=== PATIENT | male | born 1970 | race Caucasian/White ===

== ENCOUNTER 2017-11-22 10:20 | Emergency (ER) | payer BC ==
[2017-11-22] MEDS ORDERED: EMS NS 0.9%(*) 1000 ML BAG 1,000 ML IV ONE (10:30)
--- NOTE | 2017-11-22 10:48 | ER Report ---
History and Physical Time Seen By MD: 10:30 Hx. of Stated Complaint: Patient found naked and combative in parking lot at truck stop. 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 He is originally from [place]. He was brought in by both police and EMS after he was found altered, diaphoretic, and running around naked in a parking lot of the truck stop. He was handcuffed by a bystander. He was given both Ativan and Valium by EMS due to his combative behavior. Upon arrival to the ED he is sleeping and still diaphoretic. Shortly after arrival he did wake. Upon awakening, he was extremely pleasant, confused, and remorseful about the turn of events. He states the last thing he remembers is sitting outside his truck in the sunshine to read a book, and thinks he probably fell asleep. He denies taking any medications or alcohol or illicit drug use. He reports no medical problems and states he does not take any medications daily. Remainder of the 14 system rev: Yes Reviewed Nurses Notes: Yes Old Medical Records Reviewed: Yes Hx Smoking: Yes Exposure to Second Hand Smoke?: Yes Hx Substance Use Disorder: No Hx Alcohol Use: No Constitutional Vital Sign - Last 24 Hours 11/22/17 11/22/17 11/22/17 11/22/17 10:21 10:30 10:36 10:45 Temp 101.1 Pulse 137 132 136 Resp 24 32 B/P (MAP) 175/119 169/130 (143) Pulse Ox 88 90 93 O2 Delivery Room Air 11/22/17 11/22/17 11:00 11:15 Pulse 120 125 Resp 23 10 B/P (MAP) 157/102 (120) Pulse Ox 90 90 Physical Exam General Appearance: The patient is alert, confused, and diaphoretic but has no immediate need for airway protection and no signs of toxicity. Eyes: Pupils equal and round no pallor or injection. ENT, Mouth: Mucous membranes are dry Respiratory: There are no retractions, lungs are clear to auscultation. Cardiovascular: tachycardic but regular Gastrointestinal: Abdomen is soft and non tender, no masses, bowel sounds normal. Neurological: Awake and alert but confused and amnestic to events, no focal neuro defiicts Skin: Diaphoretic, multiple abrasions to extremities. Large healing wound in the center of back Musculoskeletal: Neck is supple non tender. Extremities are nontender, nonswollen and have full range of motion. DIFFERENTIAL DIAGNOSIS: After history and physical exam differential diagnosis was considered for toxidrome, infection, closed injury, thyroid storm Medical Decision Making Data Points Result Diagram: 11/22/17 1013 11/22/17 1013 Laboratory Hematology Test 11/22/17 10:13 11/22/17 11:09 11/22/17 11:56 Red Blood Count 4.66 M/uL (4.00-5.60) Mean Corpuscular Volume 85.9 fL (80.0-96.0) Mean Corpuscular Hemoglobin 28.9 pg (26.0-33.0) Mean Corpuscular Hemoglobin Concent 33.6 g/dL (32.0-36.0) Red Cell Distribution Width 16.0 % (11.5-14.5) Mean Platelet Volume 9.0 fL (7.2-11.1) Neutrophils (%) (Auto) 72.5 % (39.4-72.5) Lymphocytes (%) (Auto) 20.7 % (17.6-49.6) Monocytes (%) (Auto) 4.8 % (4.1-12.4) Eosinophils (%) (Auto) 0.6 % (0.4-6.7) Basophils (%) (Auto) 1.4 % (0.3-1.4) Nucleated RBC Relative Count (auto) 0.0 /100WBC Neutrophils # (Auto) 8.4 K/uL (2.0-7.4) Lymphocytes # (Auto) 2.4 K/uL (1.3-3.6) Monocytes # (Auto) 0.6 K/uL (0.3-1.0) Eosinophils # (Auto) 0.1 K/uL (0.0-0.5) Basophils # (Auto) 0.2 K/uL (0.0-0.1) Nucleated RBC Absolute Count (auto) 0.00 K/uL Sodium Level 139 mmol/L (137-145) Potassium Level 3.2 mmol/L (3.5-5.0) Chloride Level 119 mmol/L (98-107) Carbon Dioxide Level 16 mmol/L (22-30) Blood Urea Nitrogen 10 mg/dl (9-21) Creatinine 1.10 mg/dl (0.66-1.25) Glomerular Filtration Rate Calc > 60.0 Random Glucose 191 mg/dl (75-110) Calcium Level 9.4 mg/dl (8.4-10.2) Total Bilirubin 0.3 mg/dl (0.2-1.3) Aspartate Amino Transf (AST/SGOT) 41 U/L (0-35) Alanine Aminotransferase (ALT/SGPT) 34 U/L (0-56) Alkaline Phosphatase 118 U/L (0-126) Troponin I < 0.012 ng/ml Total Protein 7.6 g/dl (6.3-8.2) Albumin 4.6 g/dl (3.5-5.0) Thyroid Stimulating Hormone (TSH) 3.05 uIU/ml (0.46-4.68) Serum Alcohol < 10 mg/dl Lactate 2.4 mmol/L (0.7-2.1) Urine Color Straw Urine Clarity Clear Urine pH 5.0 pH (4.8-9.5) Urine Specific [place] 1.008 Urine Protein Negative mg/dL (NEGATIVE) Urine Glucose (UA) Negative mg/dL (NEGATIVE) Urine Ketones Negative mg/dL (NEGATIVE) Urine Blood Negative (NEGATIVE) Urine Nitrite Negative (NEGATIVE) Urine Bilirubin Negative (NEGATIVE) Urine Urobilinogen Negative mg/dL (0.2-1.9) Urine Leukocyte Esterase Negative (NEGATIVE) Urine RBC None /HPF (0-2/HPF) Urine WBC None /HPF (0-5/HPF) Urine Squamous Epithelial Cells None /LPF (</=FEW) Urine Bacteria Negative /HPF (NONE-FEW) Urine Mucus None /HPF (NONE-FEW) Urine Opiates Screen Positive Urine Barbiturates Screen Negative Ur Tricyclic Antidepressants Screen Negative Urine Phencyclidine Screen Negative Urine Amphetamines Screen Negative Urine Benzodiazepines Screen Negative Urine Cocaine Screen Negative Urine Cannabinoids Screen Negative Chemistry Test 11/22/17 10:13 11/22/17 11:09 11/22/17 11:56 White Blood Count 11.6 k/uL (4.5-11.0) Red Blood Count 4.66 M/uL (4.00-5.60) Hemoglobin 13.5 g/dL (14.0-18.0) Hematocrit 40.0 % (42.0-52.0) Mean Corpuscular Volume 85.9 fL (80.0-96.0) Mean Corpuscular Hemoglobin 28.9 pg (26.0-33.0) Mean Corpuscular Hemoglobin Concent 33.6 g/dL (32.0-36.0) Red Cell Distribution Width 16.0 % (11.5-14.5) Platelet Count 303 K/uL (150-450) Mean Platelet Volume 9.0 fL (7.2-11.1) Neutrophils (%) (Auto) 72.5 % (39.4-72.5) Lymphocytes (%) (Auto) 20.7 % (17.6-49.6) Monocytes (%) (Auto) 4.8 % (4.1-12.4) Eosinophils (%) (Auto) 0.6 % (0.4-6.7) Basophils (%) (Auto) 1.4 % (0.3-1.4) Nucleated RBC Relative Count (auto) 0.0 /100WBC Neutrophils # (Auto) 8.4 K/uL (2.0-7.4) Lymphocytes # (Auto) 2.4 K/uL (1.3-3.6) Monocytes # (Auto) 0.6 K/uL (0.3-1.0) Eosinophils # (Auto) 0.1 K/uL (0.0-0.5) Basophils # (Auto) 0.2 K/uL (0.0-0.1) Nucleated RBC Absolute Count (auto) 0.00 K/uL Glomerular Filtration Rate Calc > 60.0 Calcium Level 9.4 mg/dl (8.4-10.2) Total Bilirubin 0.3 mg/dl (0.2-1.3) Aspartate Amino Transf (AST/SGOT) 41 U/L (0-35) Alanine Aminotransferase (ALT/SGPT) 34 U/L (0-56) Alkaline Phosphatase 118 U/L (0-126) Troponin I < 0.012 ng/ml Total Protein 7.6 g/dl (6.3-8.2) Albumin 4.6 g/dl (3.5-5.0) Thyroid Stimulating Hormone (TSH) 3.05 uIU/ml (0.46-4.68) Serum Alcohol < 10 mg/dl Lactate 2.4 mmol/L (0.7-2.1) Urine Color Straw Urine Clarity Clear Urine pH 5.0 pH (4.8-9.5) Urine Specific [place] 1.008 Urine Protein Negative mg/dL (NEGATIVE) Urine Glucose (UA) Negative mg/dL (NEGATIVE) Urine Ketones Negative mg/dL (NEGATIVE) Urine Blood Negative (NEGATIVE) Urine Nitrite Negative (NEGATIVE) Urine Bilirubin Negative (NEGATIVE) Urine Urobilinogen Negative mg/dL (0.2-1.9) Urine Leukocyte Esterase Negative (NEGATIVE) Urine RBC None /HPF (0-2/HPF) Urine WBC None /HPF (0-5/HPF) Urine Squamous Epithelial Cells None /LPF (</=FEW) Urine Bacteria Negative /HPF (NONE-FEW) Urine Mucus None /HPF (NONE-FEW) Urine Opiates Screen Positive Urine Barbiturates Screen Negative Ur Tricyclic Antidepressants Screen Negative Urine Phencyclidine Screen Negative Urine Amphetamines Screen Negative Urine Benzodiazepines Screen Negative Urine Cocaine Screen Negative Urine Cannabinoids Screen Negative Toxicology Test 11/22/17 10:13 11/22/17 11:56 Serum Alcohol < 10 mg/dl Urine Opiates Screen Positive Urine Barbiturates Screen Negative Ur Tricyclic Antidepressants Screen Negative Urine Phencyclidine Screen Negative Urine Amphetamines Screen Negative Urine Benzodiazepines Screen Negative Urine Cocaine Screen Negative Urine Cannabinoids Screen Negative Urinalysis Test 11/22/17 11:56 Urine Color Straw Urine Clarity Clear Urine pH 5.0 pH (4.8-9.5) Urine Specific [place] 1.008 Urine Protein Negative mg/dL (NEGATIVE) Urine Glucose (UA) Negative mg/dL (NEGATIVE) Urine Ketones Negative mg/dL (NEGATIVE) Urine Blood Negative (NEGATIVE) Urine Nitrite Negative (NEGATIVE) Urine Bilirubin Negative (NEGATIVE) Urine Urobilinogen Negative mg/dL (0.2-1.9) Urine Leukocyte Esterase Negative (NEGATIVE) Urine RBC None /HPF (0-2/HPF) Urine WBC None /HPF (0-5/HPF) Urine Squamous Epithelial Cells None /LPF (</=FEW) Urine Bacteria Negative /HPF (NONE-FEW) Urine Mucus None /HPF (NONE-FEW) EKG/Imaging EKG Interpretation 12 lead EKG: Rhythm: sinus tachycardia [place]: normal QRS: normal ST segments: normal Monitor Interpretation: Sinus Tachycardia ED Course/Re-evaluation ED Course 47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 When he awoke in the emergency department, he was confused, pleasant, remorseful about his combative behavior. He was febrile, and treatment for presumed heatstroke was started. The patient was able to sew the last thing he remembered was sitting in the sign reading a block outside his truck, and states he must have follow asleep. There are no signs of infection. He states the on his back which is been chronic for her year status post a brown recluse bite he states is much improved from its usual state. The patient has no pain and no complaints. His UA was positive for opiates, but the patient adamantly states that he has no access to opiates. His presentation was not that of opiate use. A TSH is pending, but given his rapid improvement with benzodiazepines this is not consistent with thyroid storm. I spoke with this patient at length about the use of opiates especially in the setting of driving a large vehicle. He adamantly states that he does not use opiates. His presentation could be consistent with a heatstroke although in the setting of diaphoresis it is unclear. He is otherwise back to his baseline, and asking to leave the ED so he can rest before he has to get back on the road. Decision to Disposition Date: Nov 22, 2017 Decision to Disposition Time: 12:56 Depart Departure Latest Vital Signs Vital Signs Date Time Temp Pulse Resp B/P (MAP) Pulse Ox O2 Delivery O2 Flow Rate FiO2 11/22/17 11:15 125 10 90 11/22/17 11:00 157/102 (120) 11/22/17 10:21 101.1 Room Air Impression: Primary Impression: Altered mental status, unspecified Additional Impression: Heat stress syndrome Condition: Improved Disposition: HOME OR SELF-CARE Patient Instructions: Heatstroke (DC) Problem Qualifiers Primary Impression: Altered mental status, unspecified Altered mental status type: delirium Qualified Codes: R41.0 - Disorientation , unspecified Additional Impression: Heat stress syndrome Encounter type: initial encounter Qualified Codes: T67.8XXA - Other effects of heat and light, initial encounter JORGE A ZAYAS MD Nov 22, 2017 10:48
[2017-11-22] MEDS ORDERED: NS(*) 0.9% 1000 ML BAG 1,000 ML IV ONE (10:55)
[2017-11-22 11:00] VITALS: BP 157/102
[2017-11-22 11:01] LABS: PLATELET COUNT, AUTOMATED 303 K/uL (150-450)
--- NOTE | 2017-11-22 11:22 | RADIOLOGY IMAGING REPORT ---
FACILITY: [facility] PATIENT NAME: Thomas Cruz : 09/20/1965 MR: [id number] V: [id number] EXAM DATE: ORDERING PHYSICIAN: JORGE A ZAYAS TECHNOLOGIST: [place] [facility] [place]: Thomas Cruz : 09/20/1965 Visit/Account:[id number] Date of Sevice: 11/22/2017 CHEST SINGLE AP INDICATION: febrile and AMS COMPARISON: None available FINDINGS: Heart size within normal limits. There is no focal infiltrate or lobar consolidation. There is no pneumothorax or pleural effusion. IMPRESSION: 1. No acute cardiopulmonary process. Report Dictated By: Jack Estrada at 11/22/2017 11:18 AM Report E-Signed By: Jack Estrada at 11/22/2017 11:18 AM WSN:[id number]
--- NOTE | 2017-11-22 11:53 | RADIOLOGY IMAGING REPORT ---
[place] [facility] [place] : 1970 MR: [id number] V: [id number] EXAM DATE: ORDERING PHYSICIAN: JORGE A ZAYAS TECHNOLOGIST: Location: [facility] Patient: Thomas Cruz : 1970 Visit/Account:[id number] Date of Sevice: 11/22/2017 EXAMINATION: CT Head without intravenous contrast HISTORY: Delirium. TECHNIQUE: Axial images were obtained from the skull base to the vertex without intravenous contrast . Sagittal and coronal reformatted images are also submitted. One of the following dose optimization techniques was utilized in the performance of this exam: Autom ated exposure control; adjustment of the mA and/or kV according to the patient's size; or use of an i terative reconstruction technique. Specific details can be referenced in the facility's radiology C T exam operational policy. COMPARISON: None available. FINDINGS: Brain volume: Normal. Ventricles: Negative. Acute ischemic changes: None. Hemorrhage: None. Masses / edema: None. Scott-white: Negative. White matter: Negative. Vessels: Negative. Extra-axial: Negative. Calvarium / skull base: Negative. Visualized sinuses / orbits: Partially imaged mucosal thickening in the left maxillary sinus and nicole r complete opacification of the right maxillary sinus with thickening of the right maxillary sinus wa lls. IMPRESSION: 1. Partially imaged mucosal thickening in the left maxillary sinus and near complete opacification o f the right maxillary sinus with thickening of the right maxillary sinus pardo. 2. Otherwise normal noncontrast head CT. Report Dictated By: Ricardo Newby MD at 11/22/2017 11:45 AM Report E-Signed By: Ricardo Newby MD at 11/22/2017 11:49 AM WSN:[id number]
[2017-11-22] MEDS ORDERED: POTASSIUM CHL 20 MEQ TABCR PO SCH (12:25)
--- NOTE | 2017-11-22 14:59 | EKG ---
FACILITY: [facility] PATIENT NAME: PORFIRIO FRITZ : [id number] MR: [id number] V: [id number] EXAM DATE: ORDERING PHYSICIAN: JORGE A ZAYAS TECHNOLOGIST: ANA Faust Reason : Blood Pressure : / mmHG Vent. Rate : 131 BPM Atrial Rate : 131 BPM P-R Int : 140 ms QRS Dur : 080 ms QT Int : 294 ms P-R-T Axes : 055 038 033 degrees QTc Int : 434 ms Sinus tachycardia Otherwise normal ECG No previous ECGs available Confirmed by HANNAH PLEITEZ ([id number]) on 11/22/2017 4:45:06 PM Referred By: Confirmed By:HANNAH PLEITEZ
== END 2017-11-22 13:00 ==
LOC: EDBD 10:23 → ER 10:23
DX: T67.8XXA Other effects of heat and light, initial encounter (principal); R41.0 Disorientation, unspecified
CPT/HCPCS: 36415; 70450; 71045; 80305; 80320; 81001; 83605; 84443; 84484; 85025; 93005; 96360; 96361; 99284; J7030; 82040; 82247; 82310; 82374; 82435; 82565; 82947; 84075; 84132; 84155; 84295; 84450; 84460; 84520

== ENCOUNTER → 2017-11-22 | Outpatient (CLI) | payer SELFPAY | LOC: AMB 09:51 | PROVIDERS: ATTEND Nurse Practitioner | DX: R41.82 Altered mental status, unspecified (principal); R06.82 Tachypnea, not elsewhere classified | CPT/HCPCS: A0425; A0427 ==